=== PATIENT | male | born 1955 | race Two or more races ===

== ENCOUNTER 2016-07-09 14:37 | Emergency (ER) | payer OTHER ==
[~2016-07-09] VITALS: Ht 170.2 cm; Wt 77.1 kg
[~2016-07-09 14:37] MED LIST: Insulin; METFORMIN HCL500 M1 ORAL
[2016-07-09 14:41] VITALS: BP 149/79
--- NOTE | 2016-07-09 16:14 | Diagnostic Imaging Report ---
Indication: Abdominal pain Technique: Continuous helical transaxial imaging of the abdomen and pelvis was obtained from the lung bases to the pubic symphysis. No intravenous contrast was administered. Coronal 2-D reformats were also obtained. Total Dose length Product (DLP): [address] Dose Index Volume (CTDIvol): 16 mGy Comparison: none Findings: The lung bases are clear. Solid organ evaluation is limited on a noncontrast examination. There is no nephrolithiasis or hydronephrosis. Aorta is mildly calcified. There are diverticula demonstrated within the colon. Appendix is seen and appears normal. Gallbladder is grossly unremarkable. There is a left inguinal hernia containing fat. Impression: No acute findings. Atherosclerotic vascular disease Left inguinal hernia containing fat Diverticulosis of the colon. The CT scanner at [facility] is accredited by the [employer] and the scans are performed using protocols designed to limit radiation exposure to as low as reasonably achievable to attain images of sufficient resolution adequate for diagnostic evaluation.
--- NOTE | 2016-07-09 16:34 | Diagnostic Imaging Report ---
Indication: pain Findings: 3 views of the left hand were obtained. Normal bony mineralization and alignment are demonstrated. No acute fractures, erosions, or periosteal reaction are seen. Soft tissues are unremarkable. Impression: Negative examination of the left hand.
[2016-07-09 16:42] VITALS: BP 141/71
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
[2016-07-09] MEDS ORDERED: TdaP Vaccine 0.5ml Syr IM ONE (16:45)
[2016-07-09] MEDS ORDERED: TYLENOL EXTRA500 MG ORAL (16:45)
[2016-07-09] MEDS ORDERED: Bacitracin Oint UD TOPIC ONE (16:45)
[2016-07-09] MEDS ORDERED: HM DOUBLE ANT28.4 G1 TP (16:45)
[2016-07-09] MEDS ORDERED: Tylenol #3 tab (300mg/30mg) ORAL ONE (16:45)
== END 2016-07-09 17:13 | disposition home or self-care (01) ==
LOC: EDBD 14:37 → EMR 15:01
DX: S70.02XA Contusion of left hip, initial encounter (principal); S60.222A Contusion of left hand, initial encounter; E11.9 Type 2 diabetes mellitus without complications; I10 Essential (primary) hypertension; Z23 Encounter for immunization; V03.90XA Pedestrian on foot injured in collision with car, pick-up truck or van, unspecified whether traffic or nontraffic accident, initial encounter; Y92.9 Unspecified place or not applicable; Y99.8 Other external cause status
CPT/HCPCS: 74176; 90471; 90715; 99284